=== PATIENT | male | born 1970 | race Caucasian/White ===

== ENCOUNTER 2020-12-31 17:07 | Inpatient (IN) | payer BC ==
[~2020-12-31] VITALS: Ht 177.8 cm; Wt 77.1 kg
[~2020-12-31 17:07] MED LIST: ABACAVIR300 MG ORAL; AMLODIPINE BESY10 MG ORAL; EPIVIR150 MG ORAL; METOPROLOL SUC100 MG ORAL; NEVIRAPINE200 MG PO
--- NOTE | 2020-12-31 17:10 | NUR ---
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 An aluminum piece broke off from what he was working on and lacerated his R index finger. +CMS to R index finger.
[2020-12-31] MEDS ORDERED: Aspirin Baby 81mg ORAL ONE (17:30)
--- NOTE | 2020-12-31 17:36 | NUR ---
Pt reports palpitations x3 months with onset of burning sensation x1 month. 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 Pt has Hx of HIV, HTN, Hypercholesteremia. Pt took losartan 50mg, metoprolol 100mg, and propanolol 10mg this AM. Pt also states he has SOB.
--- NOTE | 2020-12-31 17:57 | Emergency Room Report ---
History of Present Illness General Chief Complaint: Chest Pain Source: Patient Present Illness HPI Is a 50-year-old male past medical history of HIV and hypertension who presents to the ER complaining of elevated blood pressure. Patient states that his blood pressure has been elevated for the past month and that is Dr. Change his medication but complains of persistent issues controlling his blood pressure. Patient denies any headache or dizziness. He complains of intermittent chest pain and shortness of breath. He states he currently does not have any chest pain. He denies any focal weakness. He complains of intermittent cough that is nonproductive. He denies any sick contacts. Patient complains of bilateral lower extremity edema and calf tenderness. He denies any abdominal pain, nausea or vomiting. 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 Review of Systems All Other Systems: negative except mentioned in HPI Physical Exam Vital Signs Date Time Temp Pulse Resp B/P (MAP) Pulse Ox O2 Delivery O2 Flow Rate FiO2 12/31/20 17:15 98.2 74 18 178/107 (130) 94 Room Air Sp02 EP Interpretation: reviewed, normal General Appearance: no apparent distress, alert, GCS 15, non-toxic Head: normocephalic, atraumatic Eyes: bilateral eye normal inspection, bilateral eye PERRL ENT: hearing grossly normal, normal pharynx, no angioedema, normal voice Neck: full range of motion, supple/symm/no masses Respiratory: chest non-tender, lungs clear, normal breath sounds, speaking full sentences Cardiovascular #1: regular rate, rhythm, no edema Gastrointestinal: normal bowel sounds, non tender, soft, non-distended, no guarding, no rebound Genitourinary: normal inspection, no CVA tenderness Musculoskeletal: normal range of motion, calf tenderness - bilateral Neurologic: financial coach III-XII nml as tested, oriented x3 Psychiatric: no suicidal/homicidal ideation, other - Appears a little bit anxious Skin: no rash Lymphatic: no adenopathy Medical Decision Making Diagnostic Impression: Primary Impression: Chest pain Additional Impression: Malignant hypertension ER Course Patient presented with elevated blood pressure. Patient given 10 mg of hydralazine. And recheck at 7:30 PM patient's blood pressure is currently 136/93. His heart rate is 98 bpm. Patient given p.o. aspirin. Patient denied having chest pain while in the emergency department. Troponin negative x1. Patient had some T wave inversions. Patient's chest x-ray demonstrates no acute cardiopulmonary pathology. Patient will be admitted for further treatment and evaluation. Laboratory Tests Test 12/31/20 17:42 White Blood Count 4.4 K/UL (4.8-10.8) L Red Blood Count 5.00 M/UL (4.70-6.10) Hemoglobin 16.8 G/DL (14.2-18.0) Hematocrit 51.3 % (42.0-52.0) Mean Corpuscular Volume 103 FL (80-99) H Mean Corpuscular Hemoglobin 33.7 PG (27.0-31.0) H Mean Corpuscular Hemoglobin Concent 32.8 G/DL (32.0-36.0) Red Cell Distribution Width 11.6 % (11.6-14.8) Platelet Count 242 K/UL (150-450) Mean Platelet Volume 6.4 FL (6.5-10.1) L Neutrophils (%) (Auto) 52.6 % (45.0-75.0) Lymphocytes (%) (Auto) 33.5 % (20.0-45.0) Monocytes (%) (Auto) 11.4 % (1.0-10.0) H Eosinophils (%) (Auto) 1.0 % (0.0-3.0) Basophils (%) (Auto) 1.5 % (0.0-2.0) Prothrombin Time 10.8 SEC (9.30-11.50) Prothrombin Time INR 1.0 (0.9-1.1) Activated Partial Thromboplast Time 25 SEC (23-33) D-Dimer 0.28 mg/L FEU (0.00-0.49) Sodium Level 145 MMOL/L (136-145) Potassium Level 3.8 MMOL/L (3.5-5.1) Chloride Level 106 MMOL/L (98-107) Carbon Dioxide Level 26 MMOL/L (21-32) Anion Gap 13 mmol/L (5-15) Blood Urea Nitrogen 13 mg/dL (7-18) Creatinine 1.3 MG/DL (0.55-1.30) Estimated Glomerular Filtration Rate 58.0 mL/min (>60) Glucose Level 133 MG/DL (74-106) H Calcium Level 10.4 MG/DL (8.5-10.1) H Magnesium Level 2.0 MG/DL (1.8-2.4) Total Bilirubin 0.6 MG/DL (0.2-1.0) Aspartate Amino Transferase (AST) 42 U/L (15-37) H Alanine Aminotransferase (ALT) 65 U/L (12-78) Alkaline Phosphatase 102 U/L (46-116) Troponin I 0.007 ng/mL (0.000-0.056) Pro-B-Type Natriuretic Peptide 44 pg/mL (0-125) Total Protein 8.5 G/DL (6.4-8.2) H Albumin 4.8 G/DL (3.4-5.0) Globulin 3.7 g/dL Albumin/Globulin Ratio 1.3 (1.0-2.7) Urine Opiates Screen Negative (NEGATIVE) Urine Barbiturates Screen Negative (NEGATIVE) Phencyclidine (PCP) Screen Negative (NEGATIVE) Urine Amphetamines Screen Negative (NEGATIVE) Urine Benzodiazepines Screen Negative (NEGATIVE) Urine Cocaine Screen Negative (NEGATIVE) Urine Marijuana (THC) Screen Negative (NEGATIVE) EKG Diagnostic Results Troponin ordered: Yes When was troponin ordered?: Dec 31, 2020 EKG Time: 16:41 EP Interpretation: Marii Hammond MD Rate: normal - 72 bpm Rhythm: NSR ST Segments: other - T wave inversions in III and aVF flattening of the T wave in V5 and V6 ASA given to the pt in ED: Yes Rhythm Strip Diag. Results Rhythm Strip Time: 17:57 EP Interpretation: yes - Marii Hammond MD Rate: 99 bpm Rhythm: NSR, no PVC's, no ectopy Chest X-Ray Diagnostic Results Chest X-Ray Diagnostic Results : Chest X-Ray Ordered: Yes # of Views/Limited/Complete: 1 View Indication: Chest Pain EP Interpretation: Yes Interpretation: no consolidation, no effusion, no pneumothorax, no acute cardiopulmonary disease Impression: No acute disease Electronically Signed by: Marii Hammond MD Last Vital Signs Date Time Temp Pulse Resp B/P (MAP) Pulse Ox O2 Delivery O2 Flow Rate FiO2 12/31/20 17:48 192/113 12/31/20 17:15 98.2 74 18 94 Room Air Disposition: ADMITTED INPATIENT - Telemetry Condition: Critical Physician Consult: Dr. Mccabe [id number] Referrals: [facility],REFERRING (PCP) Additional Instructions: Please note that this report is being documented using DRAGON technology. This can lead to erroneous entry secondary to incorrect interpretation by the dictating instrument. Marii Hammond M.D. Dec 31, 2020 17:57
[2020-12-31 18:09] VITALS: BP 192/113
[2020-12-31 18:16] LABS: BASOPHILS % (AUTO) 1.5 % (0.0-2.0); HEMATOCRIT 51.3 % (42.0-52.0); HEMOGLOBIN 16.8 G/DL (14.2-18.0); LYMPHOCYTES % (AUTO) 33.5 % (20.0-45.0); MEAN CORPUSCULAR VOLUME 103 FL (80-99); MONOCYTES % (AUTO) 11.4 % (1.0-10.0); NEUTROPHILS % (AUTO) 52.6 % (45.0-75.0); PLATELET COUNT 242 K/UL (150-450); RED CELL DISTRIBUTION WIDTH 11.6 % (11.6-14.8); WHITE BLOOD COUNT 4.4 K/UL (4.8-10.8)
[2020-12-31 18:19] LABS: CALCIUM 10.4 MG/DL (8.5-10.1); CREATININE 1.3 MG/DL (0.55-1.30); POTASSIUM 3.8 MMOL/L (3.5-5.1)
--- NOTE | 2020-12-31 18:19 | NUR ---
B/P 141/88 96 21 99%
[2020-12-31 18:29] LABS: ALBUMIN 4.8 G/DL (3.4-5.0); ALBUMIN/GLOBULIN RATIO 1.3 (1.0-2.7); BILIRUBIN,TOTAL 0.6 MG/DL (0.2-1.0)
[2020-12-31 18:36] VITALS: BP 146/82
[2020-12-31 18:58] VITALS: BP 146/82
[2020-12-31] MEDS ORDERED: LOSARTAN POTASS50 MG ORAL (20:05)
--- NOTE | 2020-12-31 20:15 | NUR ---
report given to mariah phillips patient is to be transferd to room 205-2 via acls protocol
--- NOTE | 2020-12-31 20:30 | NUR ---
NURSE NOTES: received patient from ED via stretcher accompanied by the nurse. patient walk to bed and place on the monitor. assessment initiated. patient show no signs of distress. no SOB. orient patient to room, discussed plan of care. call sheffield within reach, will continue to monitor. will send message to MD for admission orders.
[2020-12-31 20:40] VITALS: BP 153/101
--- NOTE | 2020-12-31 21:06 | NUR ---
NURSE NOTES: send message to physician for admission orders. awaiting for reply back.
[2020-12-31] MEDS: Acetaminophen 500mg (ES) tab ORAL PRN (23:02)
[2021-01-01] VITALS: BP 130/89
[2021-01-01 04:00] VITALS: BP 149/95
[2021-01-01 05:53] LABS: BASOPHILS % (AUTO) 1.9 % (0.0-2.0); EOSINOPHILS % (AUTO) 2.2 % (0.0-3.0); HEMATOCRIT 45.5 % (42.0-52.0); HEMOGLOBIN 15.5 G/DL (14.2-18.0); LYMPHOCYTES % (AUTO) 33.8 % (20.0-45.0); MEAN CORPUSCULAR VOLUME 101 FL (80-99); MONOCYTES % (AUTO) 13.6 % (1.0-10.0); NEUTROPHILS % (AUTO) 48.5 % (45.0-75.0); PLATELET COUNT 196 K/UL (150-450); RED BLOOD COUNT 4.51 M/UL (4.70-6.10); RED CELL DISTRIBUTION WIDTH 11.8 % (11.6-14.8); WHITE BLOOD COUNT 3.6 K/UL (4.8-10.8)
[2021-01-01 06:06] LABS: ALANINE AMINOTRANSFERASE 56 U/L (12-78); ALBUMIN 4.1 G/DL (3.4-5.0); ALBUMIN/GLOBULIN RATIO 1.3 (1.0-2.7); ALKALINE PHOSPHATASE 83 U/L (46-116); ANION GAP 11 mmol/L (5-15); ASPARTATE AMINO TRANSFERASE 37 U/L (15-37); BILIRUBIN,TOTAL 0.7 MG/DL (0.2-1.0); BLOOD UREA NITROGEN 12 mg/dL (7-18); CALCIUM 9.2 MG/DL (8.5-10.1); CARBON DIOXIDE 27 MMOL/L (21-32); CHLORIDE 106 MMOL/L (98-107); CREATININE 1.1 MG/DL (0.55-1.30); POTASSIUM 3.7 MMOL/L (3.5-5.1); SODIUM 143 MMOL/L (136-145)
--- NOTE | 2021-01-01 07:38 | NUR ---
NURSE HAND-OFF REPORT: Important Events on Shift: new admission with CP/palpitation. Patient Status: full Diet: cardiac Pending Orders: Pending Results/Labs: Pending MD notification: Latest Vital Signs: Temperature 98.0 , Pulse 68 , B/P 149 /95 , Respiratory Rate 20 , O2 SAT 97 , Room Air, O2 Flow Rate . Vital Sign Comment: EKG Rhythm: Sinus Rhythm Rhythm change?: N MD Notified?: - MD Response: Latest Villagomez Fall Score: 20 Fall Risk: Low Risk Safety Measures: Call light Within Reach, Bed Alarm , Side Rails Side Rails x2, Bed position Low and Locked. Fall Precautions: Report given to Talisha DENIS.
[2021-01-01 08:00] VITALS: BP 146/96
--- NOTE | 2021-01-01 08:33 | NUR ---
change in assignment report given to jamal stone rn, henok in to see patient
--- NOTE | 2021-01-01 08:35 | NUR ---
NURSE NOTES: assume patient care from reece phillpis.on RA, ambulatory, staedy, not in acute distress. seen by cardio this AM.
[2021-01-01] MEDS: Metoprolol Succinate XL 100mg tab ORAL SCH (08:52)
[2021-01-01] MEDS: Losartan 25mg tab ORAL SCH (08:52)
[2021-01-01] MEDS: Acetaminophen 500mg (ES) tab ORAL PRN ×2 (09:03→17:25)
--- NOTE | 2021-01-01 09:46 | Cardiac Electrophysiology PN ---
Subjective Subjective [id number] Objective Last 24 Hour Vital Signs Date Time Temp Pulse Resp B/P (MAP) Pulse Ox O2 Delivery O2 Flow Rate FiO2 01/01/21 08:52 146/96 01/01/21 08:52 85 146/96 01/01/21 08:51 85 146/96 01/01/21 08:00 97.9 85 19 146/96 (113) 97 01/01/21 08:00 87 01/01/21 04:00 98.0 77 20 149/95 (113) 97 01/01/21 04:00 68 01/01/21 00:00 97.7 85 20 130/89 (103) 96 01/01/21 00:00 93 12/31/20 21:00 Room Air 12/31/20 20:42 Room Air 12/31/20 20:40 98.0 100 20 153/101 (118) 97 12/31/20 20:12 98.0 82 18 140/80 98 Room Air 12/31/20 18:58 146/82 12/31/20 18:36 146/82 12/31/20 18:09 96 21 Room Air 12/31/20 18:09 96 21 192/113 99 Room Air 12/31/20 17:48 192/113 12/31/20 17:15 98.2 74 18 178/107 (130) 94 Room Air Intake and Output 12/31/20 01/01/21 19:00 07:00 Intake Total 240 ml Balance 240 ml Intake Oral 240 ml # Voids 2 Laboratory Tests Test 12/31/20 17:42 01/01/21 05:20 White Blood Count 4.4 K/UL (4.8-10.8) L 3.6 K/UL (4.8-10.8) L Red Blood Count 5.00 M/UL (4.70-6.10) 4.51 M/UL (4.70-6.10) L Hemoglobin 16.8 G/DL (14.2-18.0) 15.5 G/DL (14.2-18.0) Hematocrit 51.3 % (42.0-52.0) 45.5 % (42.0-52.0) Mean Corpuscular Volume 103 FL (80-99) H 101 FL (80-99) H Mean Corpuscular Hemoglobin 33.7 PG (27.0-31.0) H 34.3 PG (27.0-31.0) H Mean Corpuscular Hemoglobin Concent 32.8 G/DL (32.0-36.0) 34.0 G/DL (32.0-36.0) Red Cell Distribution Width 11.6 % (11.6-14.8) 11.8 % (11.6-14.8) Platelet Count 242 K/UL (150-450) 196 K/UL (150-450) Mean Platelet Volume 6.4 FL (6.5-10.1) L 6.3 FL (6.5-10.1) L Neutrophils (%) (Auto) 52.6 % (45.0-75.0) 48.5 % (45.0-75.0) Lymphocytes (%) (Auto) 33.5 % (20.0-45.0) 33.8 % (20.0-45.0) Monocytes (%) (Auto) 11.4 % (1.0-10.0) H 13.6 % (1.0-10.0) H Eosinophils (%) (Auto) 1.0 % (0.0-3.0) 2.2 % (0.0-3.0) Basophils (%) (Auto) 1.5 % (0.0-2.0) 1.9 % (0.0-2.0) Prothrombin Time 10.8 SEC (9.30-11.50) Prothromb Time International Ratio 1.0 (0.9-1.1) Activated Partial Thromboplast Time 25 SEC (23-33) D-Dimer 0.28 mg/L FEU (0.00-0.49) Sodium Level 145 MMOL/L (136-145) 143 MMOL/L (136-145) Potassium Level 3.8 MMOL/L (3.5-5.1) 3.7 MMOL/L (3.5-5.1) Chloride Level 106 MMOL/L (98-107) 106 MMOL/L (98-107) Carbon Dioxide Level 26 MMOL/L (21-32) 27 MMOL/L (21-32) Anion Gap 13 mmol/L (5-15) 11 mmol/L (5-15) Blood Urea Nitrogen 13 mg/dL (7-18) 12 mg/dL (7-18) Creatinine 1.3 MG/DL (0.55-1.30) 1.1 MG/DL (0.55-1.30) Estimat Glomerular Filtration Rate 58.0 mL/min (>60) > 60 mL/min (>60) Glucose Level 133 MG/DL (74-106) H 115 MG/DL (74-106) H Calcium Level 10.4 MG/DL (8.5-10.1) H 9.2 MG/DL (8.5-10.1) Magnesium Level 2.0 MG/DL (1.8-2.4) Total Bilirubin 0.6 MG/DL (0.2-1.0) 0.7 MG/DL (0.2-1.0) Aspartate Amino Transf (AST/SGOT) 42 U/L (15-37) H 37 U/L (15-37) Alanine Aminotransferase (ALT/SGPT) 65 U/L (12-78) 56 U/L (12-78) Alkaline Phosphatase 102 U/L (46-116) 83 U/L (46-116) Troponin I 0.007 ng/mL (0.000-0.056) Pro-B-Type Natriuretic Peptide 44 pg/mL (0-125) Total Protein 8.5 G/DL (6.4-8.2) H 7.2 G/DL (6.4-8.2) Albumin 4.8 G/DL (3.4-5.0) 4.1 G/DL (3.4-5.0) Globulin 3.7 g/dL 3.1 g/dL Albumin/Globulin Ratio 1.3 (1.0-2.7) 1.3 (1.0-2.7) Urine Opiates Screen Negative (NEGATIVE) Urine Barbiturates Screen Negative (NEGATIVE) Phencyclidine (PCP) Screen Negative (NEGATIVE) Urine Amphetamines Screen Negative (NEGATIVE) Urine Benzodiazepines Screen Negative (NEGATIVE) Urine Cocaine Screen Negative (NEGATIVE) Urine Marijuana (THC) Screen Negative (NEGATIVE) Elio Perez MD Jan 01, 2021 09:46
[2021-01-01] MEDS ORDERED: Lexiscan 0.4mg/5ml syringe IV PRN (10:00)
--- NOTE | 2021-01-01 10:54 | NUR ---
INSURANCE CLINICALS FAXED TO Maria Dolores # [phone] fax# [phone]
[2021-01-01 12:00] VITALS: BP 153/100
--- NOTE | 2021-01-01 12:01 | Cardiology Report ---
APPROVED REPORT EKG Measurement Heart [id number] FL 140P38 [id number] <Conclusion> Normal sinus rhythm Possible Left atrial enlargement Left ventricular hypertrophy Nonspecific ST abnormality Abnormal ECG
[2021-01-01 12:45] LABS: APPEARANCE,URINE SLIGHTLY CLOUDY; BILIRUBIN, URINE NEGATIVE (NEGATIVE); COLOR,URINE PALE YELLOW; GLUCOSE, URINE (UA) NEGATIVE (NEGATIVE); KETONES,URINE NEGATIVE (NEGATIVE); LEUKOCYTE ESTERASE ,URINE NEGATIVE (NEGATIVE); NITRITE,URINE NEGATIVE (NEGATIVE); PH,URINE 8 (4.5-8.0); PROTEIN,URINE 2+ (NEGATIVE); UROBILINOGEN,URINE NORMAL MG/DL (0.0-1.0)
--- NOTE | 2021-01-01 15:29 | Cardiology Report ---
APPROVED REPORT EXAM: Two-dimensional and M-mode echocardiogram with Doppler and color Doppler. INDICATION Coronary Artery Disease M-Mode DIMENSIONS IVSd0.8 (0.7-1.1cm)Left Atrium (MM)3.4 (1.6-4.0cm) LVDd4.8 (3.5-5.6cm)Aortic Root3.5 (2.0-3.7cm) PWd0.9 (0.7-1.1cm)Aortic Cusp Exc.2.3 (1.5-2.0cm) IVSs1.1 cmEPSS0.5 (>1.0cm) LVDs3.1 (2.5-4.0cm) PWs1.2 cm <Conclusion> Normal left ventricular chamber size, systolic function and wall motion to extent visualized. Left ventricular ejection fraction estimated to be 55-60 %. No evidence of left ventricular hypertrophy. Anterior Echo-free space, may be due to pericardial fat or effusion. All other cardiac chamber sizes are within normal limits. Focal aortic valve sclerosis with adequate cusp excursion. Thickened mitral valve leaflets with normal excursion. Mitral annulus and aortic root calcification. Pulmonic valve not well visualized. Normal tricuspid valve structure. IVC at normal size and collapsing with respiration. A color flow and spectral Doppler study was performed and revealed: No aortic insufficiency. Mild mitral regurgitation. Mitral diastolic velocities suggest reduced left ventricular relaxation c/w impaired relaxation grade one diastolic dysfunction. Mild tricuspid regurgitation. Tricuspid systolic velocities suggests peak right ventricular systolic pressure of 26 mmHg. Trace pulmonic regurgitation present.
[2021-01-01 16:00] VITALS: BP 141/91
--- NOTE | 2021-01-01 16:15 | Diagnostic Imaging Report ---
EXAM: ULTRASOUND Venous Duplex Scan Karthik Leg CLINICAL HISTORY: Leg pain and edema. COMPARISON: None TECHNIQUE: Doppler examination include grayscale images obtained with and without compression, and color and spectral doppler analysis. FINDINGS: Doppler examination shows normal spontaneity, phasicity, compressibility in the bilateral lower extremities. There is no thrombus identified by grayscale. Normal color and spectral flow is identified. There is no evidence of valvular incompetency or insufficiency. IMPRESSION: UNREMARKABLE VENOUS DUPLEX.
--- NOTE | 2021-01-01 16:16 | Diagnostic Imaging Report ---
Procedure: XRAY Chest 1v Reason for study: Chest pain. Comparison films: None. FINDINGS: A single one view chest is obtained. Vascularity is normal. The lung anaya are clear bilaterally. Cardiac and mediastinal silhouette are within normal limits. CP angles are sharp. The bony thorax appear unremarkable. IMPRESSION: NO ACUTE CARDIOPULMONARY DISEASE.
--- NOTE | 2021-01-01 16:43 | Consultation ---
DATE OF CONSULTATION: 01/01/2021 CARDIOLOGY CONSULTATION CONSULTING PHYSICIAN: Elio Perez MD. REFERRING PHYSICIAN: Dahlia Smith MD. REASON FOR CONSULTATION: Accelerated hypertension and palpitation. HISTORY OF PRESENT ILLNESS: The patient is a 50-year-old man with a history of hypertension, HIV, and palpitation presented to the emergency room complaining of elevated blood pressure as well as palpitation and chest pain. The patient has [employer] and is supposed to see Dr. Kt Ames for first cardiology visit in view of the symptoms. The symptoms however got worse and he had to come to the emergency room for further evaluation. The patient's EKG showed sinus rhythm with nonspecific ST-T wave abnormality and on telemetry had frequent PVCs. REVIEW OF SYSTEMS: Negative other than what was mentioned in history of present illness. PAST MEDICAL HISTORY: 1. Accelerated hypertension. 2. Hyperlipidemia. 3. HIV for more than 20 years. 4. 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 ALLERGIES: Oseltamivir that causes rash. PHYSICAL EXAMINATION: VITAL SIGNS: Show blood pressure of 146/96, pulse 85, respirations 18, temperature 97.9. HEAD AND NECK: No JVD. LUNGS: Clear. CARDIOVASCULAR: Regular S1 and S2 with no gallop or murmur. ABDOMEN: Soft. EXTREMITIES: No pitting edema. LABORATORY AND DIAGNOSTIC DATA: His EKG shows sinus rhythm with LVH and nonspecific ST-T wave abnormalities. Labs show white count 3.6, hemoglobin 15.5, hematocrit 45.5, platelet count of 196. Sodium 142, potassium 3.7, BUN of 12, creatinine 1.1, and glucose of 115. First troponin is negative. Urine toxicology screen was negative. INR is 1. D-dimer is 0.28. ASSESSMENT AND PLAN: 1. Palpitation and chest pain. The patient has frequent PVCs because of the patient's palpitation and chest pain. We will completely rule out ND protocol, get an echocardiogram to evaluate for ejection fraction and wall motion abnormality and blood pressure. EKG showed T-wave inversion in III and aVF and flattening in V5 and V6. The patient would be scheduled for nuclear stress test for further evaluation. 2. Accelerated hypertension. Blood pressure in the ER was 192/113. Currently on Toprol 100 mg daily, Cozaar 50 mg daily, Norvasc 10 mg daily. Add p.r.n. clonidine to his medical regimen. 3. HIV on Ziagen and Epivir. The patient has HIV for more than 20 years with undetectable viral load. 4. Palpitation and frequent PVCs. After ischemic evaluation, the patient likely would need electrophysiology study for delineation of the source of these PVCs and hopefully ablate them. Thank you very much, Dr. Smith, for allowing me to participate in the care of this patient. Please do not hesitate to contact me for any questions regarding my evaluation. Sincerely, Elio Perez M.D. DR: Irene JOB#: [id number] CC:
--- NOTE | 2021-01-01 19:16 | NUR ---
NURSE HAND-OFF REPORT: Important Events on Shift:stable Patient Status: full code Diet: cardiac Pending Orders: [] Pending Results/Labs:[] Pending MD notification:[] Latest Vital Signs: Temperature 97.5 , Pulse 81 , B/P 141 /91 , Respiratory Rate 19 , O2 SAT 96 , Room Air, O2 Flow Rate . Vital Sign Comment: stable EKG Rhythm: Sinus Rhythm Rhythm change?: N MD Notified?: - MD Response: Latest Villagomez Fall Score: 20 Fall Risk: Low Risk Safety Measures: Call light Within Reach, Bed Alarm , Side Rails Side Rails x2, Bed position Low and Locked. Fall Precautions: Report given to rock phillips.
--- NOTE | 2021-01-01 19:18 | NUR ---
NURSE NOTES: Received pt and report from CIRA Christian. Observed pt resting in bed with both eyes open and reading a book. Pt is A/Ox4. boxcar weigher is in placed; pt is NSR (82 bpm). IV site intact, asymptomatic, and patent; saline locked. Bed is in the lowest position and locked. Call light and bedside table is within reach. No signs/symptoms of acute distress noted. Will continue plan of care.
[2021-01-01 20:00] VITALS: BP 146/96
--- NOTE | 2021-01-01 22:13 | History and Physical Report ---
DATE OF ADMISSION: 12/31/2020 HISTORY OF PRESENT ILLNESS: The patient has history of alcohol abuse. Currently comes in and admitted for malignant hypertension and for chest pain and shortness of breath. The patient states that the blood pressure has been high for about a week. The patient also felt palpitation and chest pain. This has been going on for couple of months. The patient also has shortness of breath and mild cough. He is admitted to rule out acute coronary syndrome and to bring down the high blood pressure. The patient denies headache. Denies any change in his vision or speech pattern. Denies any focal weakness. PAST MEDICAL HISTORY: HIV, hypertension, history of GERD, history of shingles, history of Jenkins palsy, and history of kidney stones. PAST SURGERIES: surgery, removal of kidney stone, hemorrhoidectomy, tonsillectomy. SOCIAL HISTORY: Has history of smoking, has history of drug abuse, has history of alcohol abuse. FAMILY HISTORY: Noncontributory. MEDICATIONS: Viramune, metoprolol, losartan, Epivir, and abacavir. ALLERGIES: Oseltamivir. REVIEW OF SYSTEMS: HEENT: Denies headaches. RESPIRATORY: Reports shortness of breath. CARDIOVASCULAR: Does have chest pain for a couple of months that does not radiate and is there for hours. No orthopnea. GASTROINTESTINAL: Denies nausea, vomiting, or diarrhea. EXTREMITIES: Denies pain in lower extremities. CENTRAL NERVOUS SYSTEM: Denies change in speech pattern. PHYSICAL EXAMINATION: VITAL SIGNS: Temperature is 97.9, pulse is 85, blood pressure 152/100. HEENT: PERRLA. NECK: Supple. No lymphadenopathy. CHEST: Clear to auscultation. CARDIOVASCULAR: Regular rate and rhythm. No murmurs or extra sounds. GASTROINTESTINAL: Soft, nontender, nondistended. No organomegaly. EXTREMITIES: No edema. Moves all 4 extremities. Sensory intact to light touch. Reflexes on both sides. LABORATORY DATA: WBC of 4.4, hemoglobin 16.8, platelets of 242. Sodium 145, potassium 3.8, BUN of 13, creatinine 1.3, glucose of 133. Troponin 0.007. EKG, no significant changes. ASSESSMENT AND PLAN: 1. Chest pain, rule out acute coronary syndrome. 2. Hypertensive urgency. 3. Shortness of breath. I have consulted Dr. Perez and Dr. Fouladian to help with the management of the chest pain and to bring down as well as intervene on the blood pressure. The patient is not in any acute distress. We will review the troponin. Echo per Dr. Perez. Dahlia Smith M.D. DR: DAVIS JOB#: [id number] CC:
[2021-01-02] VITALS (7 sets, daily range): BP systolic 128–147; BP diastolic 84–99
--- NOTE | 2021-01-02 01:29 | NUR ---
NURSE NOTES: Observed pt asleep in bed. No complaint of CP or acute distress noted. Pt has been NPO since midnight for cardiac stress test scheduled in the AM.
[2021-01-02 03:54] LABS: BASOPHILS % (AUTO) 1.4 % (0.0-2.0); EOSINOPHILS % (AUTO) 2.7 % (0.0-3.0); HEMATOCRIT 43.6 % (42.0-52.0); HEMOGLOBIN 14.7 G/DL (14.2-18.0); MEAN CORPUSCULAR VOLUME 100 FL (80-99); MONOCYTES % (AUTO) 11.7 % (1.0-10.0); NEUTROPHILS % (AUTO) 48.3 % (45.0-75.0); PLATELET COUNT 195 K/UL (150-450); RED BLOOD COUNT 4.37 M/UL (4.70-6.10); RED CELL DISTRIBUTION WIDTH 11.5 % (11.6-14.8); WHITE BLOOD COUNT 3.7 K/UL (4.8-10.8)
[2021-01-02 05:16] LABS: ALANINE AMINOTRANSFERASE 49 U/L (12-78); ALBUMIN 3.9 G/DL (3.4-5.0); ALBUMIN/GLOBULIN RATIO 1.3 (1.0-2.7); ALKALINE PHOSPHATASE 84 U/L (46-116); ANION GAP 11 mmol/L (5-15); ASPARTATE AMINO TRANSFERASE 40 U/L (15-37); BILIRUBIN,TOTAL 0.7 MG/DL (0.2-1.0); BLOOD UREA NITROGEN 11 mg/dL (7-18); CALCIUM 9.4 MG/DL (8.5-10.1); CARBON DIOXIDE 25 MMOL/L (21-32); CHLORIDE 106 MMOL/L (98-107); CREATININE 1.1 MG/DL (0.55-1.30); POTASSIUM 3.6 MMOL/L (3.5-5.1); SODIUM 142 MMOL/L (136-145)
--- NOTE | 2021-01-02 07:23 | NUR ---
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 Pt NPO since midnight for stress test today. Patient Status: Stable Diet: Cardiac, Low Sodium Pending Orders: Stress Test Pending Results/Labs: AM Labs Pending MD notification: N Latest Vital Signs: Temperature 97.5 , Pulse 67 , B/P 146 /99 , Respiratory Rate 19 , O2 SAT 96 , Room Air, O2 Flow Rate . EKG Rhythm: Sinus Rhythm Rhythm change?: N Latest Villagomez Fall Score: 20 Fall Risk: Low Risk Safety Measures: Call light Within Reach, Bed Alarm , Side Rails Side Rails x2, Bed position Low and Locked. Fall Precautions: Patient Fall Education Report given to CIRA Todd.
--- NOTE | 2021-01-02 08:00 | NUR ---
NURSE NOTES: Received report from Therese Potts RN. Patient sitting up in bed, awake and alert, asking questions regarding his care and indicated that he wants to go home. I educated regarding his Lexiscan test and went over his medical history since arrival. Bed in lowest position, side rails up x 2, wheels locked, call light within reach, on room air, NPO since midnoc, no c/o pain, no SOB, in no apparent distress.
[2021-01-02] MEDS: Metoprolol Succinate XL 100mg tab ORAL SCH (08:34)
[2021-01-02] MEDS: Losartan 25mg tab ORAL SCH (08:34)
--- NOTE | 2021-01-02 11:29 | NUR ---
INSURANCE [employer]IC[employer] FAXED TO Maria Dolores # [phone] fax# [phone]
--- NOTE | 2021-01-02 13:28 | Cardiac Electrophysiology PN ---
Assessment/Plan Assessment/Plan 1. Palpitation and chest pain. The patient has frequent PVCs causing the patient's palpitation and chest pain. Ruled out for OH and echocardiogram shopwed Nl EF. Awaiting nuclear stress test for further evaluation. 2. Accelerated hypertension. Blood pressure in the ER was 192/113. Currently on Toprol 100 mg daily, Cozaar 50 mg daily, Norvasc 10 mg daily. On p.r.n. clonidine 3. HIV on Ziagen and Epivir. The patient has HIV for more than 20 years with undetectable viral load. 4. Palpitation and frequent PVCs. After ischemic evaluation, the patient likely would need electrophysiology study for delineation of the source of these PVCs and hopefully ablate them. Subjective Subjective Still has frequent PVCs. Nuclear stress test pending Objective Last 24 Hour Vital Signs Date Time Temp Pulse Resp B/P (MAP) Pulse Ox O2 Delivery O2 Flow Rate FiO2 01/02/21 12:00 98.8 79 20 135/93 (107) 99 01/02/21 12:00 74 01/02/21 09:00 Room Air 01/02/21 08:34 134/92 01/02/21 08:34 74 134/92 01/02/21 08:34 74 134/92 01/02/21 08:14 97.1 74 19 134/92 (106) 97 01/02/21 08:00 97.1 74 19 134/92 (106) 97 01/02/21 08:00 79 01/02/21 04:00 97.5 67 19 146/99 (115) 96 01/02/21 04:00 67 01/02/21 00:00 95 01/02/21 00:00 98.1 81 20 147/93 (111) 98 01/01/21 21:00 Room Air 01/01/21 20:00 81 01/01/21 20:00 97.5 79 17 146/96 (113) 95 01/01/21 16:19 81 01/01/21 16:00 97.5 85 19 141/91 (108) 96 Intake and Output 01/01/21 01/02/21 19:00 07:00 Intake Total 500 ml 300 ml Balance 500 ml 300 ml Intake Oral 500 ml 300 ml # Voids 3 2 # Bowel Movements 1 Laboratory Tests Test 01/01/21 19:01/02/21 03:00 Troponin I 0.003 ng/mL (0.000-0.056) 0.001 ng/mL (0.000-0.056) White Blood Count 3.7 K/UL (4.8-10.8) L Red Blood Count 4.37 M/UL (4.70-6.10) L Hemoglobin 14.7 G/DL (14.2-18.0) Hematocrit 43.6 % (42.0-52.0) Mean Corpuscular Volume 100 FL (80-99) H Mean Corpuscular Hemoglobin 33.6 PG (27.0-31.0) H Mean Corpuscular Hemoglobin Concent 33.7 G/DL (32.0-36.0) Red Cell Distribution Width 11.5 % (11.6-14.8) L Platelet Count 195 K/UL (150-450) Mean Platelet Volume 6.9 FL (6.5-10.1) Neutrophils (%) (Auto) 48.3 % (45.0-75.0) Lymphocytes (%) (Auto) 36.0 % (20.0-45.0) Monocytes (%) (Auto) 11.7 % (1.0-10.0) H Eosinophils (%) (Auto) 2.7 % (0.0-3.0) Basophils (%) (Auto) 1.4 % (0.0-2.0) Sodium Level 142 MMOL/L (136-145) Potassium Level 3.6 MMOL/L (3.5-5.1) Chloride Level 106 MMOL/L (98-107) Carbon Dioxide Level 25 MMOL/L (21-32) Anion Gap 11 mmol/L (5-15) Blood Urea Nitrogen 11 mg/dL (7-18) Creatinine 1.1 MG/DL (0.55-1.30) Estimat Glomerular Filtration Rate > 60 mL/min (>60) Glucose Level 114 MG/DL (74-106) H Calcium Level 9.4 MG/DL (8.5-10.1) Total Bilirubin 0.7 MG/DL (0.2-1.0) Aspartate Amino Transf (AST/SGOT) 40 U/L (15-37) H Alanine Aminotransferase (ALT/SGPT) 49 U/L (12-78) Alkaline Phosphatase 84 U/L (46-116) Pro-B-Type Natriuretic Peptide 63 pg/mL (0-125) Total Protein 7.0 G/DL (6.4-8.2) Albumin 3.9 G/DL (3.4-5.0) Globulin 3.1 g/dL Albumin/Globulin Ratio 1.3 (1.0-2.7) Thyroid Stimulating Hormone (TSH) 3.620 uiU/mL (0.358-3.740) Free Thyroxine 0.87 NG/DL (0.76-1.46) Objective HEAD AND NECK: No JVD. LUNGS: Clear. CARDIOVASCULAR: Regular S1 and S2 with no gallop or murmur. ABDOMEN: Soft. EXTREMITIES: No pitting edema. Elio ePrez MD Jan 02, 2021 13:28
[2021-01-02] MEDS: Acetaminophen 500mg (ES) tab ORAL PRN (15:49)
--- NOTE | 2021-01-02 17:06 | NUR ---
NURSE NOTES: Patient indicated that he does not want to take HIV medications while in the hospital and that no one will be bringing them in. Left message on voicemail of Dr. Dahlia Smith to notify that patient will not be taking medications and asked if he wants me to discontinue the medications from the hospital medications.
--- NOTE | 2021-01-02 19:20 | General Progress Note ---
Subjective ROS Limited/Unobtainable: Yes Allergies: Coded Allergies: OSELTAMIVIR (Verified Allergy, Severe, RASH , 04/26/19) FULL BODY RASH Objective Last 24 Hour Vital Signs Date Time Temp Pulse Resp B/P (MAP) Pulse Ox O2 Delivery O2 Flow Rate FiO2 01/02/21 16:19 97.9 01/02/21 16:00 97.9 102 20 128/84 (99) 97 01/02/21 15:42 111 01/02/21 12:00 98.8 79 20 135/93 (107) 99 01/02/21 12:00 74 01/02/21 09:00 Room Air 01/02/21 08:34 134/92 01/02/21 08:34 74 134/92 01/02/21 08:34 74 134/92 01/02/21 08:14 97.1 74 19 134/92 (106) 97 01/02/21 08:00 97.1 74 19 134/92 (106) 97 01/02/21 08:00 79 01/02/21 04:00 97.5 67 19 146/99 (115) 96 01/02/21 04:00 67 01/02/21 00:00 95 01/02/21 00:00 98.1 81 20 147/93 (111) 98 01/01/21 21:00 Room Air 01/01/21 20:00 81 01/01/21 20:00 97.5 79 17 146/96 (113) 95 Intake and Output 01/01/21 01/02/21 19:00 07:00 Intake Total 500 ml 300 ml Balance 500 ml 300 ml Intake Oral 500 ml 300 ml # Voids 3 2 # Bowel Movements 1 Laboratory Tests 01/01/21 19:20: Troponin I 0.003 01/02/21 03:00: Troponin I 0.001, White Blood Count 3.7L, Red Blood Count 4.37L, Hemoglobin 14.7, Hematocrit 43.6, Mean Corpuscular Volume 100H, Mean Corpuscular Hemoglobin 33.6H, Mean Corpuscular Hemoglobin Concent 33.7, Red Cell Distribution Width 11.5L, Platelet Count 195, Mean Platelet Volume 6.9, Neutrophils (%) (Auto) 48.3, Lymphocytes (%) (Auto) 36.0, Monocytes (%) (Auto) 11.7H, Eosinophils (%) (Auto) 2.7, Basophils (%) (Auto) 1.4, Sodium Level 142, Potassium Level 3.6, Chloride Level 106, Carbon Dioxide Level 25, Anion Gap 11, Blood Urea Nitrogen 11, Creatinine 1.1, Estimat Glomerular Filtration Rate > 60, Glucose Level 114H, Calcium Level 9.4, Total Bilirubin 0.7, Aspartate Amino Transf (AST/SGOT) 40H, Alanine Aminotransferase (ALT/SGPT) 49, Alkaline Phosphatase 84, Pro-B-Type Natriuretic Peptide 63, Total Protein 7.0, Albumin 3.9, Globulin 3.1, Albumin/Globulin Ratio 1.3, Thyroid Stimulating Hormone (TSH) 3.620, Free Thyroxine 0.87 Height (Feet): 5 Height (Inches): 10.00 Weight (Pounds): 170 Assessment/Plan Problem List: (1) Malignant hypertension ICD Codes: I10 - Essential (primary) hypertension SNOMED: 84141544 (2) Chest pain ICD Codes: R07.9 - Chest pain, unspecified SNOMED: 49862908 Status: progressing Assessment/Plan: afebrile no cp no sob malignant htn r/o acs check torponin vitals stable Dahlia Smith MD Jan 02, 2021 19:20
--- NOTE | 2021-01-02 19:59 | NUR ---
NURSE HAND-OFF REPORT: Important Events on Shift: Patient had Lexiscan test. Patient is anxious to go home. When patient is standing or moving about in room, heart rate increases to 120-125. Patient Status: In no apparent distress. Diet: Cardiac, Low Sodium Pending Orders: N/A Pending Results/Labs: Lexiscan Pending MD notification:N/A Latest Vital Signs: Temperature 97.9 , Pulse 102 , B/P 128 /84 , Respiratory Rate 20 , O2 SAT 97 , Room Air, O2 Flow Rate . Vital Sign Comment: N/A EKG Rhythm: Sinus Rhythm Rhythm change?: N MD Notified?: Dr. Elio Perez MD Response: Dr. Elio Perez did rounds and visitied patient. Latest Villagomez Fall Score: 20 Fall Risk: Low Risk Safety Measures: Call light Within Reach, Bed Alarm , Side Rails Side Rails x2, Bed position Low and Locked. Fall Precautions: Patient Fall Education Report given to Ayesha Murray RN.
--- NOTE | 2021-01-02 20:00 | NUR ---
NURSE NOTES: Report received from CIRA Pandya. Upon assessment pt is walking around his room organizing his personal belongings. A/Ox4. PERRLA. Able to make needs known. 0/10 pain on chest. Pt only c/o "palpitations in chest." Denies SOB. ST on monitor. HR 100. BP 130/91. Bounding pulses observed on bilateral radial pulses. Cap refill <3 seconds. No edema noted. Clear breath sounds throughout all lobes. RLQ sounds auscultated. Bed kept in lowest and locked position. Side rails up x2. Call light within reach. Will monitor.
--- NOTE | 2021-01-02 22:02 | NUR ---
NURSE NOTES: Messed Dr. Perez in regards to episodes of Trigeminy. Pt BP WNL. Denies chest pain or SOB at this time. Awaiting further orders.
--- NOTE | 2021-01-02 23:11 | NUR ---
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 Reassured pt that cardiology will have more answers soon and advised against leaving. Pt observed to be resting comfortably now; seen having a snack and reading book in bed.
--- NOTE | 2021-01-02 23:28 | Diagnostic Imaging Report ---
EXAM: NM Myocardial Perfusion with SPECT CLINICAL HISTORY: CP TECHNIQUE: Myocardial perfusion imaging with tomographic (SPECT) including attenuation correction, qualitative or quantitative wall motion, ejection fraction by first pass or gated technique, with additional quantification when performed. Study performed following intravenous administration of Tc99m Sestamibi. COMPARISON: None FINDINGS: Myocardial perfusion: Unremarkable. No fixed or reversible perfusion defects. Myocardial wall motion: Normal wall motion. Left ventricular ejection fraction: Within normal limits. Left ventricular volume: Within normal limits. IMPRESSION: Normal myocardial perfusion exam.
[2021-01-03] VITALS: BP 125/85
[2021-01-03 04:00] VITALS: BP 129/78
[2021-01-03 04:51] LABS: BASOPHILS % (AUTO) 1.5 % (0.0-2.0); EOSINOPHILS % (AUTO) 4.4 % (0.0-3.0); HEMATOCRIT 44.2 % (42.0-52.0); HEMOGLOBIN 15.2 G/DL (14.2-18.0); LYMPHOCYTES % (AUTO) 36.6 % (20.0-45.0); MEAN CORPUSCULAR VOLUME 99 FL (80-99); MONOCYTES % (AUTO) 12.8 % (1.0-10.0); NEUTROPHILS % (AUTO) 44.7 % (45.0-75.0); PLATELET COUNT 185 K/UL (150-450); RED BLOOD COUNT 4.45 M/UL (4.70-6.10); RED CELL DISTRIBUTION WIDTH 11.3 % (11.6-14.8); WHITE BLOOD COUNT 3.7 K/UL (4.8-10.8)
[2021-01-03 05:07] LABS: ALANINE AMINOTRANSFERASE 58 U/L (12-78); ALBUMIN 3.8 G/DL (3.4-5.0); ALBUMIN/GLOBULIN RATIO 1.2 (1.0-2.7); ALKALINE PHOSPHATASE 96 U/L (46-116); ANION GAP 9 mmol/L (5-15); ASPARTATE AMINO TRANSFERASE 43 U/L (15-37); BILIRUBIN,TOTAL 0.5 MG/DL (0.2-1.0); BLOOD UREA NITROGEN 16 mg/dL (7-18); CALCIUM 9.1 MG/DL (8.5-10.1); CARBON DIOXIDE 26 MMOL/L (21-32); CHLORIDE 105 MMOL/L (98-107); CREATININE 1.2 MG/DL (0.55-1.30); POTASSIUM 3.4 MMOL/L (3.5-5.1); SODIUM 140 MMOL/L (136-145)
--- NOTE | 2021-01-03 06:46 | NUR ---
NURSE NOTES: Pt slept well throughout the night. No c/o chest pain or SOB. Says he woke up with a headache and is anxious to go home. Provided breakfast and warm towel. Will monitor.
--- NOTE | 2021-01-03 06:55 | NUR ---
NURSE HAND-OFF REPORT: Important Events on Shift: Pending Cardio Orders Patient Status: Stable Diet: Reg Pending Orders: Pending Results/Labs: Pending MD notification: Latest Vital Signs: Temperature 97.9 , Pulse 75 , B/P 129 /78 , Respiratory Rate 16 , O2 SAT 100 , Room Air, O2 Flow Rate . Vital Sign Comment: EKG Rhythm: Sinus Rhythm Rhythm change?: Zach Horton MD Notified?: Zach Perez MD Response: Latest Villagomez Fall Score: 20 Fall Risk: Low Risk Safety Measures: Call light Within Reach, Bed Alarm , Side Rails Side Rails x2, Bed position Low and Locked. Fall Precautions: Patient Fall Education Report given to CIRA Stratton.
--- NOTE | 2021-01-03 07:30 | NUR ---
NURSE NOTES: Received pt from CIRA Isaacs, pt is awake and alert, pt is in RA, no SOB or acute respiratory distress noted. pt has in tact IV access LFA 20G SL. no pain noted at this time. All needs attended, bed is locked and is in the lowest position, call light within easy reach. will continue to monitor.
[2021-01-03 08:00] VITALS: BP 147/98
--- NOTE | 2021-01-03 08:20 | NUR ---
NURSE NOTES: Dr Doyle is aware about K 3.4, waiting to call back.
[2021-01-03] MEDS: Metoprolol Succinate XL 100mg tab ORAL SCH (08:57)
[2021-01-03] MEDS: Losartan 25mg tab ORAL SCH (08:57)
--- NOTE | 2021-01-03 10:04 | Cardiac Electrophysiology PN ---
Assessment/Plan Assessment/Plan 1. Palpitation and chest pain due to frequent PVCs Ruled out for MS and echocardiogram showed Nl EF. Nuclear stress test showed no ischemia. 2. Accelerated hypertension. Blood pressure in the ER was 192/113. Currently on Toprol 100 mg daily, Cozaar 50 mg daily, Norvasc 10 mg daily. On p.r.n. clonidine 3. HIV on Ziagen and Epivir. The patient has HIV for more than 20 years with undetectable viral load. 4. Palpitation and frequent PVCs. Would need electrophysiology study for delineation of the source of these PVCs and hopefully ablate them. Subjective Subjective Still has frequent PVCs. Nuclear stress test showed no ischemia Objective Last 24 Hour Vital Signs Date Time Temp Pulse Resp B/P (MAP) Pulse Ox O2 Delivery O2 Flow Rate FiO2 01/03/21 08:57 147/98 01/03/21 08:57 92 147/98 01/03/21 08:56 92 147/98 01/03/21 08:00 98.2 92 20 147/98 (114) 99 01/03/21 07:41 90 01/03/21 04:00 97.9 69 16 129/78 (95) 100 01/03/21 04:00 75 01/03/21 00:00 97.6 95 16 125/85 (98) 100 01/02/21 21:00 Room Air 01/02/21 20:00 101 01/02/21 20:00 97.9 81 16 137/91 (106) 98 01/02/21 19:00 114 01/02/21 16:19 97.9 01/02/21 16:00 97.9 102 20 128/84 (99) 97 01/02/21 15:42 111 01/02/21 12:00 98.8 79 20 135/93 (107) 99 01/02/21 12:00 74 Intake and Output 01/02/21 01/03/21 19:00 07:00 Intake Total 480 ml 200 ml Balance 480 ml 200 ml Intake Oral 480 ml 200 ml # Voids 2 Laboratory Tests Test 01/03/21 04:00 White Blood Count 3.7 K/UL (4.8-10.8) L Red Blood Count 4.45 M/UL (4.70-6.10) L Hemoglobin 15.2 G/DL (14.2-18.0) Hematocrit 44.2 % (42.0-52.0) Mean Corpuscular Volume 99 FL (80-99) Mean Corpuscular Hemoglobin 34.2 PG (27.0-31.0) H Mean Corpuscular Hemoglobin Concent 34.4 G/DL (32.0-36.0) Red Cell Distribution Width 11.3 % (11.6-14.8) L Platelet Count 185 K/UL (150-450) Mean Platelet Volume 6.5 FL (6.5-10.1) Neutrophils (%) (Auto) 44.7 % (45.0-75.0) L Lymphocytes (%) (Auto) 36.6 % (20.0-45.0) Monocytes (%) (Auto) 12.8 % (1.0-10.0) H Eosinophils (%) (Auto) 4.4 % (0.0-3.0) H Basophils (%) (Auto) 1.5 % (0.0-2.0) Sodium Level 140 MMOL/L (136-145) Potassium Level 3.4 MMOL/L (3.5-5.1) L Chloride Level 105 MMOL/L (98-107) Carbon Dioxide Level 26 MMOL/L (21-32) Anion Gap 9 mmol/L (5-15) Blood Urea Nitrogen 16 mg/dL (7-18) Creatinine 1.2 MG/DL (0.55-1.30) Estimat Glomerular Filtration Rate > 60 mL/min (>60) Glucose Level 120 MG/DL (74-106) H Calcium Level 9.1 MG/DL (8.5-10.1) Total Bilirubin 0.5 MG/DL (0.2-1.0) Aspartate Amino Transf (AST/SGOT) 43 U/L (15-37) H Alanine Aminotransferase (ALT/SGPT) 58 U/L (12-78) Alkaline Phosphatase 96 U/L (46-116) Total Protein 6.9 G/DL (6.4-8.2) Albumin 3.8 G/DL (3.4-5.0) Globulin 3.1 g/dL Albumin/Globulin Ratio 1.2 (1.0-2.7) Objective HEAD AND NECK: No JVD. LUNGS: Clear. CARDIOVASCULAR: Regular S1 and S2 with no gallop or murmur. ABDOMEN: Soft. EXTREMITIES: No pitting edema. Elio Perez MD Jan 03, 2021 10:04
[2021-01-03 11:25] VITALS: BP 133/98
--- NOTE | 2021-01-03 11:30 | NUR ---
NURSE NOTES: pt has D/C order, all discharge assessments and instructions done and pt verbally confirmed to understand all. Dr Cuellar visited pt and is aware about last night Trigeminy and MD cleared pt to D/C. PT HAS PRESCRIPTION FROM DR CUELLAR AND PT ASKED TO TAKE IT TO HIS OWN PHARMACY. Pt is stable, V/S stable, all belongings are with pt, pt is aware to F/U with primary MD and Dr Cuellar in one week, pt has Dr Cuellar phone number and address. iv access D/C, skin is intact. pt left hospital.
--- NOTE | 2021-01-03 13:35 | NUR ---
INSURANCE CLINICALS FAXED TO [facility] # [phone] fax# [phone]
--- NOTE | 2021-01-07 10:30 | Discharge Summary ---
Discharge Summary Discharge Summary _ Date of admission: 12/31/2020 Date of discharge: 01/03/[address] Smith History of Present Illness and Brief Hospital Course Mr. 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 Patient also complained of intermittent chest pain and shortness of breath. Patient was given hydralazine and aspirin. Initial troponin was negative. Patient had some T wave inversions on EKG. Chest x-ray demonstrated no acute cardiopulmonary pathology. Patient was admitted to the hospital for further treatment and evaluation. Echocardiogram showed normal ejection fraction. Nuclear stress test showed no ischemia. His palpitation and chest pain or likely secondary to frequent PVCs. Patient would need electrophysiology study for delineation of the source of these PVCs and hopefully ablate them. Patient was ruled out for myocardial infarction. Given the accelerated hypertension, patient was given Toprol, Cozaar, Norvasc and clonidine. Given his history of HIV, he was continued on Ziagen and Epivir. Patient had HIV for more than 20 years with undetectable viral load. Patient was medically stable for discharge and was discharged home on 01/03/2021. Patient was instructed to follow-up with PCP in Dr. Perez upon discharge. Consultants: Cardiology Dr. Perez Discharge Condition Stable Discharge Activity As tolerated Discharge Diet Low-fat, low-sodium diet Final diagnoses Palpitation Premature ventricular contractions History of HIV, on ART Accelerated hypertension I have been assigned to dictate discharge summary for this account. I was not involved in the patient's management Naren Anders Jan 07, 2021 10:30
--- NOTE | 2021-01-07 10:34 | NUR ---
INSURANCE DC SUMMARY FAXED TO [facility]# [phone] fax# [phone]
== END 2021-01-03 11:29 | disposition home or self-care (01) | DRG 305 ==
LOC: EMR 17:36 → 2E 19:26 → EDBEDREQ 20:03
DX: I16.0 Hypertensive urgency (principal); R07.9 Chest pain, unspecified; R06.02 Shortness of breath; E78.5 Hyperlipidemia, unspecified; Z88.8 Allergy status to other drugs, medicaments and biological substances; I49.3 Ventricular premature depolarization; Z87.891 Personal history of nicotine dependence; F19.11 Other psychoactive substance abuse, in remission; F10.11 Alcohol abuse, in remission; K21.9 Gastro-esophageal reflux disease without esophagitis
CPT/HCPCS: 36415; 71045; 78452; 80053; 80307; 81001; 83735; 83880; 84439; 84443; 84484; 85025; 85379; 85610; 85730; 93005; 93306; 93970; 96374; 99285; J2785; J8499